=== PATIENT | male | born 1975 | race Two or more races ===

== ENCOUNTER 2025-06-06 08:36 | Outpatient (OUT) | payer OTHER, SELFPAY ==
--- OUTSIDE RECORDS SUMMARY | 2025-06-06 08:45 | XMS_ITS | Clinical Summary ---
Author Organization [facility] Address [address] [place] [address] Phone Care Team Providers Care Theatre Program Director Name Role Phone Kvng Romero DO Primary Care Provider [phone]- [phone] Social History Tobacco UseTypesPacks/DayYears UsedDateSmoking Tobacco: Never AssessedSex and Gender InformationValueDate RecordedSex Assigned at BirthNot on fileLegal Sex Male09/10/2023 3:03 PM EDTGender IdentityNot on fileSexual OrientationNot on file Plan of Treatment Health MaintenanceDue DateLast DoneCommentsCT Vnpnyvzwffrp35/03/1977Colonoscopy 1976Colorectal Cancer Qjuaorevn57/03/1977FIT-DNA (Cologuard)1976FIT 1976HIV Eutbleciu31/03/1977Lipid Panel1976 5485Sxefezcuulkpr96/03/1977 Yearly Adult Fsqmgwng13/03/1977MMR Vaccines (1 of 1 - Standard series)1977 Hepatitis C Dgyfxofcy23/03/1995Hepatitis B Vaccines (1 of 3 - 19+ 3-dose series) 1995DTaP/Tdap/Td Vaccines (1 - Tdap)1998COVID-19 Vaccine (1 - 2024- season)2025Influenza Vaccine (#1)2025Zoster Vaccines (1 of 2) 2026HIB VaccinesAged OutNo longer eligible based on patient's age to complete this topicHPV VaccinesAged OutNo longer eligible based on patient's age to complete this topicHepatitis A VaccinesAged OutNo longer eligible based on patient's age to complete this topicIPV VaccinesAged OutNo longer eligible based on patient's age to complete this topicMeningococcal VaccineAged OutNo longer eligible based on patient's age to complete this topicPneumococcal Vaccine: Pediatrics and At-Risk Adult PatientsAged OutNo longer eligible based on patient's age to complete this topicRotavirus VaccinesAged OutNo longer eligible based on patient's age to complete this topic Insurance Care Teams Team MemberRelationshipSpecialtyStart DateEnd Kvng Malik DO [address] [place] [address] [place] [address] PCP - [facility]09/10/23
--- OUTSIDE RECORDS SUMMARY | 2025-06-06 08:45 | XMS_ITS | Clinical Summary ---
Author Organization [facility] Address [address] [place] [address] Care Team Providers Care Protective Clothing Issuer Name Role Phone Unavailable Primary Care Provider Unavailabl e Social History Tobacco UseTypesPacks/DayYears UsedDateSmoking Tobacco: Never AssessedSex and Gender InformationValueDate RecordedSex Assigned at BirthNot on fileLegal Sex Male08/28/2022 7:32 PM EDTGender IdentityNot on fileSexual OrientationNot on file Last Filed Vital Signs Vital SignReadingTime TakenCommentsBlood Cgquyixy982/90010/28/2017 12:00 PM EDT Pulse--Temperature--Respiratory Rate--Oxygen Saturation--Inhaled Oxygen Concentration--Hmzgqx21.7 kg (189 lb)04/25/2020 12:00 PM IQMGbbvkf297.3 cm (5' 11 )04/25/2020 12:00 PM ESTBody Mass Index26.36106/25/2019 12:00 PM EST Plan of Treatment Not on file Insurance
--- NOTE | 2025-06-06 08:51 | XR_ITS ---
The [address] [address] Patient Name: DENITA ESTES MRN: [id number] date: 1975 Sex: M Assigned Patient Location: LAB Current Patient Location: LAB Accession/Order Number: [id number] Exam Date: 06/06/2025 08:55 Report Date: 06/06/2025 10:26 At the request of: DADA UNDERWOOD DPDary Procedure: XR foot KEN min 3V BILATERAL FEET - 3 views each COMPARISON: None CLINICAL DATA: Bilateral foot pain Weight-bearing AP, lateral and oblique views were obtained. There are no acute fractures or dislocation. There is a tiny left plantar calcaneal spur. No soft tissue swelling is noted. XR/XR foot KEN min 3V IMPRESSION: NO ACUTE BONY FINDINGS. Impression dictated by: Nina Bullock M.D. 06/06/2025 10:26 AM Dictation [facility] Electronically authenticated by: [id number] Y Date: 06/06/2025 10:26
== END 2025-06-06 08:37 | disposition home or self-care (01) ==
LOC: LAB 08:41
PROVIDERS: PCP Family Medicine; Visit Provider Podiatrist Foot & Ankle Surgery
DX: M79.671 Pain in right foot (principal); M79.672 Pain in left foot
CPT/HCPCS: 73630